=== PATIENT | female | born 1975 | race African-American/Black ===

== ENCOUNTER 2022-11-26 14:18 | Emergency (ER) | payer SELFPAY ==
[2022-11-26] MEDS: Cyclobenzaprine 10 MG Tab PO ONE (15:02)
[2022-11-26] MEDS: Ibuprofen 600 MG Tab PO ONE (15:02)
== END 2022-11-26 15:25 | disposition home or self-care (01) ==
LOC: KA.ED 14:18
DX: S76.311A Strain of muscle, fascia and tendon of the posterior muscle group at thigh level, right thigh, initial encounter (principal); S39.012A Strain of muscle, fascia and tendon of lower back, initial encounter; I10 Essential (primary) hypertension; Z79.899 Other long term (current) drug therapy; X50.9XXA Other and unspecified overexertion or strenuous movements or postures, initial encounter; Y93.E5 Activity, floor mopping and cleaning; Y92.89 Other specified places as the place of occurrence of the external cause; Y99.0 Civilian activity done for income or pay
CPT/HCPCS: 99283; A9270-GY

== ENCOUNTER 2023-11-24 17:18 | Emergency (ER) | payer OTHER | END 2023-11-24 18:00 | disposition home or self-care (01) | LOC: KA.ED 17:18 | DX: S63.502A Unspecified sprain of left wrist, initial encounter (principal); I10 Essential (primary) hypertension; Z86.19 Personal history of other infectious and parasitic diseases; Z79.899 Other long term (current) drug therapy; X50.0XXA Overexertion from strenuous movement or load, initial encounter | CPT/HCPCS: 73110-LT; 99283 ==

== ENCOUNTER 2024-05-15 11:45 | Emergency (ER) | payer OTHER ==
[2024-05-15] MEDS ORDERED: tiZANidine 4 MG Tab ONE (12:17)
[2024-05-15] MEDS: Ketorolac 10 MG Tab PO ONE (12:25)
[2024-05-15] MEDS: tiZANidine 4 MG Tab PO SCH (12:26)
[2024-05-15 13:05] VITALS: BP 160/100; PULSE 85
== END 2024-05-15 12:45 | disposition home or self-care (01) ==
LOC: KA.ED 11:45
DX: S86.911A Strain of unspecified muscle(s) and tendon(s) at lower leg level, right leg, initial encounter (principal); I10 Essential (primary) hypertension; Z79.84 Long term (current) use of oral hypoglycemic drugs; Z79.899 Other long term (current) drug therapy; X50.9XXA Other and unspecified overexertion or strenuous movements or postures, initial encounter
CPT/HCPCS: 99283; A9270-GY